=== PATIENT | male | born 1955 | race Caucasian/White ===

== ENCOUNTER 2023-01-08 20:20 | Inpatient (IN) | payer MEDICARE, MEDICAID ==
[~2023-01-08] VITALS: Ht 172.7 cm; Wt 92.1 kg
[2023-01-08] MEDS ORDERED: ATOR10TA PO (20:54)
[2023-01-08] MEDS ORDERED: INSU3INS6 SQ (20:54)
[2023-01-08] MEDS ORDERED: ASPI81TA31 PO (20:54)
[2023-01-08] MEDS ORDERED: METF-494 PO (20:56)
[2023-01-08 21:20] VITALS: BP 120/60; TEMP 98.6; O2SAT 99
[2023-01-08] MEDS ORDERED: MAGNESIUM HYDROXIDE 30 ML LIQUID UDC PO PRN (21:45)
[2023-01-08] MEDS ORDERED: REMEDY ESSENTIAL ZINC PASTE 113 GM TP PRN (21:45)
[2023-01-08] MEDS ORDERED: ACETAMINOPHEN 325 MG TABLET PO PRN (21:45)
[2023-01-08] MEDS ORDERED: ONDANSETRON 4 MG/2 ML VIAL IV PRN (21:45)
[2023-01-08] MEDS ORDERED: ZOLPIDEM 5 MG TABLET PO PRN (21:45)
[2023-01-08] MEDS ORDERED: DEXTROSE 50% 50 ML DISP.SYRIN IV PRN (21:45)
[2023-01-08 22:00] VITALS: BP_SYST 109; BP_SYST 118; BP_SYST 122; BP_DIAS 52; BP_DIAS 62; BP_DIAS 65
[2023-01-08] MEDS: IV NS 1000 ML 1,000 ML IV PRN (23:21)
[2023-01-09] VITALS (8 sets, daily range): BP systolic 103–128; BP diastolic 56–69; TEMP 97.3–98.7; O2SAT 93–99
[2023-01-09] MEDS: BLOOD SUGAR DIAGNOSTIC 1 EACH STRIP VI SCH ×4 (06:32→20:16)
[2023-01-09 07:35] LABS: CALCIUM 8.3 mg/dL (8.5-10.1); CREATININE 0.7 mg/dL (0.6-1.3); MAGNESIUM 1.6 mg/dL (1.8-2.4); PHOSPHOROUS 3.3 mg/dL (2.5-4.9); POTASSIUM 3.7 mmol/L (3.5-5.1)
[2023-01-09 07:51] LABS: BASOPHILS % (AUTO) 0.7 % (0.0-2.0); EOSINOPHILS # (AUTO) 0.3 K/uL (0.0-0.7); EOSINOPHILS % (AUTO) 3.8 % (0.0-7.0); HEMATOCRIT 41.4 % (36.7-47.1); HEMOGLOBIN 14.5 g/dL (12.5-16.3); LYMPHOCYTES % (AUTO) 27.9 % (20.5-51.5); MEAN CORPUSCULAR HEMOGLOBIN 31.6 uug (23.8-33.4); MEAN CORPUSCULAR HGB CONC 35 g/dL (32.5-36.3); MEAN CORPUSCULAR VOLUME 90.3 fL (73.0-96.2); MONOCYTES # (AUTO) 0.6 K/uL (0.1-1.30); MONOCYTES % (AUTO) 8.7 % (0.0-11.0); NEUTROPHILS # (AUTO) 4.3 K/uL (1.8-8.9); NEUTROPHILS % (AUTO) 58.9 % (38.5-71.5); PLATELET COUNT (AUTO) 203 K/uL (152-348); RED BLOOD CELL COUNT(AUTO) 4.59 MIL/uL (4.06-5.63); RED CELL DISTRIBUTION WIDTH 14.1 % (12.1-16.2); WHITE BLOOD COUNT (AUTO) 7.2 K/uL (3.6-10.2)
[2023-01-09 08:19] LABS: *BILIRUBIN,URIN NEGATIVE (NEGATIVE); *BLOOD, URINE NEGATIVE (NEGATIVE); *CLARITY,URINE CLEAR (CLEAR); *COLOR,URINE YELLOW (YELLOW); *KETONES,URINE NEGATIVE (NEGATIVE); *PROTEIN,URINE NEGATIVE (NEGATIVE); *UROBILINOGEN,URINE 0.2 E.U./dl (NORMAL); LEUKOCYTE ESTERASE ,URINE NEGATIVE (NEGATIVE); NITRITE, URINE NEGATIVE (NEGATIVE); PH,URINE 5.5 (5.0-8.0); UGLUCOSE NEGATIVE (NEGATIVE)
[2023-01-09] MEDS: ATORVASTATIN 10 MG TABLET PO SCH (09:06)
[2023-01-09] MEDS: CEFTRIAXONE 1 G in IV DEXTROSE 5% 50 ML IV SCH (09:06)
[2023-01-09] MEDS: ASPIRIN 81 MG TAB.CHEW PO SCH (09:06)
[2023-01-09] MEDS ORDERED: MAGNESIUM OXIDE 400 MG TABLET PO ONE (11:00)
[2023-01-09] MEDS: INSULIN REGULAR, HUMAN 300 UNIT/3 ML VIAL SQ PRN ×3 (11:58→20:19)
[2023-01-09] MEDS ORDERED: CEFTRIAXONE 1 G in IV DEXTROSE 5% 50 ML IV SCH (13:00)
[2023-01-09] MEDS: IV NS 1000 ML 1,000 ML IV PRN (15:07)
[2023-01-09] MEDS ORDERED: ERGO500040 PO (15:12)
[2023-01-09] MEDS ORDERED: ICOS1CAP PO (15:20)
[2023-01-09] MEDS ORDERED: INSU100I26 SQ (15:20)
[2023-01-09] MEDS ORDERED: SEMA0.25 SQ (15:20)
[2023-01-10 00:07] VITALS: BP 114/60; TEMP 98; O2SAT 96
[2023-01-10] MEDS: IV NS 1000 ML 1,000 ML IV PRN (04:04)
[2023-01-10 04:20] VITALS: BP 123/59; TEMP 98.4; O2SAT 97
[2023-01-10] MEDS: BLOOD SUGAR DIAGNOSTIC 1 EACH STRIP VI SCH ×2 (06:12→11:52)
[2023-01-10 07:28] LABS: CALCIUM 8.6 mg/dL (8.5-10.1); CREATININE 0.7 mg/dL (0.6-1.3); MAGNESIUM 1.8 mg/dL (1.8-2.4); POTASSIUM 4.1 mmol/L (3.5-5.1)
[2023-01-10 08:09] VITALS: BP 137/95; TEMP 97.2; O2SAT 97
[2023-01-10] MEDS: CEFTRIAXONE 1 G in IV DEXTROSE 5% 50 ML IV SCH (08:38)
[2023-01-10] MEDS: ASPIRIN 81 MG TAB.CHEW PO SCH (08:38)
[2023-01-10] MEDS: ATORVASTATIN 10 MG TABLET PO SCH (08:41)
[2023-01-10 10:26] VITALS: BP 137/95; TEMP 97.2; O2SAT 97
[2023-01-10] MEDS ORDERED: ATOR10TA PO (11:39)
[2023-01-10 11:50] VITALS: BP 144/68; TEMP 97.4; O2SAT 96
[2023-01-10] MEDS: INSULIN REGULAR, HUMAN 300 UNIT/3 ML VIAL SQ PRN (12:07)
[2023-01-11] MEDS ORDERED: ATORVASTATIN 10 MG TABLET PO SCH (21:00)
== END 2023-01-10 12:15 | disposition home or self-care (01) | DRG 74 ==
LOC: TELE3 20:20
PROVIDERS: ADMIT Nurse Practitioner Acute Care; ATTEND Student in an Organized Health Care Education/Training Program
DX: G90.8 Other disorders of autonomic nervous system (principal); E87.20 Acidosis, unspecified; E87.1 Hypo-osmolality and hyponatremia; D72.829 Elevated white blood cell count, unspecified; T38.3X5A Adverse effect of insulin and oral hypoglycemic [antidiabetic] drugs, initial encounter; Y92.89 Other specified places as the place of occurrence of the external cause; E83.42 Hypomagnesemia; E78.5 Hyperlipidemia, unspecified; F17.210 Nicotine dependence, cigarettes, uncomplicated; E11.9 Type 2 diabetes mellitus without complications; E66.9 Obesity, unspecified; Z68.30 Body mass index [BMI] 30.0-30.9, adult; Z71.3 Dietary counseling and surveillance; Z79.899 Other long term (current) drug therapy; Z79.84 Long term (current) use of oral hypoglycemic drugs; Z79.82 Long term (current) use of aspirin; I35.8 Other nonrheumatic aortic valve disorders
CPT/HCPCS: 36415; 83735; 84100; 84484; 85025; 93307; G0378; J0696; J1815; J7040